=== PATIENT | female | born 1980 | race Caucasian/White ===

== ENCOUNTER 2021-02-06 20:54 | Emergency (ER) | payer MEDICAID, OTHER ==
[2021-02-06 21:03] VITALS: O2SAT 100
--- NOTE | 2021-02-06 21:14 | ERPHSYRPT ---
- History of Present Illness Time Seen by Provider: 02/06/21 21:14 Source: patient Exam Limitations: clinical condition Physician History: This is a 40-year-old white female who presents with altered mental status as well as abdominal pain. Patient states that she does use illicit drugs on occasion but denies any recent use. She also said that after eating [employer] she began having to abdominal pain. 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 Patient takes Effexor and Seroquel chronically. Timing/Duration: today Severity: moderate Associated Symptoms: abdominal pain, other (Altered mental status) Allergies/Adverse Reactions: codeine Adverse Reaction (Severe, Verified 02/06/21 21:17) Stomach Pain hydrocodone Adverse Reaction (Severe, Verified 02/06/21 21:17) Stomach Pain Home Medications: Quetiapine Fumarate [Seroquel] 50 mg PO BID 02/06/21 [History] Venlafaxine HCl [Effexor Xr] 150 mg PO DAILY 02/06/21 [History] Travel Risk - International Travel Have you traveled outside of the country in past 3 weeks: No - Coronavirus Screening Are you exhibiting any of the following symptoms?: No Close contact with a COVID-19 positive Pt in past 14-21 Days: No - Review of Systems Constitutional: Lethargy Eyes: No Symptoms Ears, Nose, & Throat: No Symptoms Respiratory: No Symptoms Cardiac: No Symptoms Abdominal/Gastrointestinal: Abdominal Pain, No Nausea, No Vomiting, No Diarrhea Genitourinary Symptoms: No Symptoms Musculoskeletal: No Symptoms Skin: No Symptoms Neurological: No Symptoms Psychological: No Symptoms Endocrine: No Symptoms Hematologic/Lymphatic: No Symptoms Immunological/Allergic: No Symptoms All Other Systems: Reviewed and Negative - Past Medical History Pertinent Past Medical History: Yes - Past Surgical History Past Surgical History: Yes - Nursing Vital Signs Nursing Vital Signs: Initial Vital Signs Temperature 98.0 F 02/06/21 21:00 Pulse Rate 83 02/06/21 21:00 Respiratory Rate 18 02/06/21 21:00 Blood Pressure 141/96 02/06/21 21:00 O2 Sat by Pulse Oximetry 100 02/06/21 21:00 Pain Scale Pain Intensity 7 - Physical Exam General Appearance: lethargy (But arousable) Eye Exam: PERRL/EOMI, eyes nml inspection Ears, Nose, Throat Exam: normal ENT inspection, moist mucous membranes Neck Exam: normal inspection, non-tender, supple, full range of motion Respiratory Exam: normal breath sounds, lungs clear, airway intact, No chest tenderness, No respiratory distress Cardiovascular Exam: regular rate/rhythm, normal heart sounds, normal peripheral pulses Gastrointestinal/Abdomen Exam: soft, normal bowel sounds, tenderness (Mild diffuse) Pelvic Exam: not done Rectal Exam: not done Back Exam: normal inspection, normal range of motion, vertebral tenderness, No CVA tenderness Extremity Exam: normal inspection, normal range of motion, pelvis stable Neurologic Exam: oriented x 3, cooperative, cashier host/hostess II-XII nml as tested, intoxicated appearance Skin Exam: normal color, warm, dry Lymphatic Exam: No adenopathy SpO2 Interpretation: normal SpO2: 100 O2 Delivery: Room Air - Course Nursing assessment & vital signs reviewed: Yes EKG Interpreted by Me: RATE ([id number]), Sinus Rhythm, NORMAL AXIS, NORMAL INTERVALS, NORMAL QRS, NORMAL ST-T, Other (No acute ischemic changes on today's EKG.) Ordered Tests: Active Orders 24 hr Category Date Time Status EKG-ER Only STAT Care 02/06/21 21:23 Active IV Insertion STAT Care 02/06/21 21:22 Active ABDOMEN AND PELVIS W/0 CONTRAS [CT] Stat Exams 02/06/21 21:56 Taken HEAD WITHOUT CONTRAST [CT] Stat Exams 02/06/21 21:52 Taken AMYLASE Stat Lab 02/06/21 21:30 Completed CBC W DIFF Stat Lab 02/06/21 21:30 Completed CMP Stat Lab 02/06/21 21:30 Completed Lactic Acid Stat Lab 02/06/21 21:30 Completed POCT GLUCOSE Stat Lab 02/06/21 21:02 Completed TROPONIN Q3H Lab 02/06/21 21:30 Completed TROPONIN Q3H Lab 02/07/21 00:30 Ordered TROPONIN Q3H Lab 02/07/21 03:30 Ordered TROPONIN Q3H Lab 02/07/21 06:30 Ordered TROPONIN Q3H Lab 02/07/21 09:30 Ordered UA W/RFX UR CULTURE Stat Lab 02/06/21 21:22 Ordered Urine Triage Profile Stat Lab 02/06/21 21:22 Ordered Medication Summary Discontinued Medications Generic Name Dose Route Start Last Admin Trade Name Freq PRN Reason Stop Dose Admin Sodium Chloride 1,000 mls @ 999 mls/hr 02/06/21 21:22 02/06/21 21:50 Sodium Chloride 0.9% 1000 Ml IV 02/06/21 22:22 999 mls/hr .Q1H1M STA Administration Sodium Chloride Confirm 02/06/21 21:48 Sodium Chloride 0.9% 1000 Ml Administered 02/06/21 21:49 Dose 1,000 mls @ ud .ROUTE .STK-MED ONE Lab/Rad Data: Laboratory Result Diagrams 02/06/21 21:30 02/06/21 21:30 Laboratory Results 02/06/21 02/06/21 02/06/21 Range/Units 21:30 21:30 21:30 WBC (4.0-10.5) K/mm3 RBC (4.1-5.4) M/mm3 Hgb (12.0-16.0) gm/dl Hct (35-47) % MCV (78-100) fl MCH (26-32) pg MCHC (32-36) g/dl RDW (11.5-14.0) % Plt Count (150-450) K/mm3 MPV (7.5-11.0) fl Gran % (36.0-66.0) % Eos # (Auto) (0-0.5) Absolute Lymphs (auto) (1.0-4.6) Absolute Monos (auto) (0.0-1.3) Lymphocytes % (24.0-44.0) % Monocytes % (0.0-12.0) % Eosinophils % (0.00-5.0) % Basophils % (0.0-0.4) % Absolute Granulocytes (1.4-6.9) Basophils # (0-0.4) Sodium 138 (137-145) mmol/L Potassium 3.9 (3.5-5.1) mmol/L Chloride 102 (98-107) mmol/L Carbon Dioxide 27 (22-30) mmol/L Anion Gap 11.9 (5-15) MEQ/L BUN 12 (7-17) mg/dL Creatinine 0.80 (0.52-1.04) mg/dL Estimated GFR > 60.0 ML/MIN Glucose 81 (74-106) mg/dL POC Glucometer (74 to 106) mg/dL Lactic Acid 1.2 (0.4-2.0) Calcium 8.9 (8.4-10.2) mg/dL Total Bilirubin 0.20 (0.2-1.3) mg/dL AST 25 (14-36) U/L ALT 13 (0-35) U/L Alkaline Phosphatase 53 (38-126) U/L Troponin I < 0.012 (0.000-0.034) ng/mL Serum Total Protein 6.8 (6.3-8.2) g/dL Albumin 4.1 (3.5-5.0) g/dL Amylase 50 (30-110) U/L 02/06/21 02/06/21 Range/Units 21:30 21:02 WBC 8.1 (4.0-10.5) K/mm3 RBC 4.17 (4.1-5.4) M/mm3 Hgb 8.8 L (12.0-16.0) gm/dl Hct 29.8 L (35-47) % MCV 71.5 L (78-100) fl MCH 21.1 L (26-32) pg MCHC 29.5 L (32-36) g/dl RDW 18.0 H (11.5-14.0) % Plt Count 392 (150-450) K/mm3 MPV 9.0 (7.5-11.0) fl Gran % 69.6 H (36.0-66.0) % Eos # (Auto) 0.06 (0-0.5) Absolute Lymphs (auto) 1.79 (1.0-4.6) Absolute Monos (auto) 0.60 (0.0-1.3) Lymphocytes % 22.1 L (24.0-44.0) % Monocytes % 7.4 (0.0-12.0) % Eosinophils % 0.7 (0.00-5.0) % Basophils % 0.2 (0.0-0.4) % Absolute Granulocytes 5.62 (1.4-6.9) Basophils # 0.02 (0-0.4) Sodium (137-145) mmol/L Potassium (3.5-5.1) mmol/L Chloride (98-107) mmol/L Carbon Dioxide (22-30) mmol/L Anion Gap (5-15) MEQ/L BUN (7-17) mg/dL Creatinine (0.52-1.04) mg/dL Estimated GFR ML/MIN Glucose (74-106) mg/dL POC Glucometer 102 (74 to 106) mg/dL Lactic Acid (0.4-2.0) Calcium (8.4-10.2) mg/dL Total Bilirubin (0.2-1.3) mg/dL AST (14-36) U/L ALT (0-35) U/L Alkaline Phosphatase (38-126) U/L Troponin I (0.000-0.034) ng/mL Serum Total Protein (6.3-8.2) g/dL Albumin (3.5-5.0) g/dL Amylase (30-110) U/L - Progress Progress: improved Progress Note: 02/06/21 22:37 CAT scan of the head without contrast shows a normal CAT scan with no acute intracranial abnormalities. CAT scan of the abdomen pelvis without contrast shows no acute intra-abdominal or intrapelvic process. 02/06/21 22:53 Medical decision making: This patient's work-up is thus far negative. However patient is refusing to provide us with a urine sample for urinalysis and urine triage/drug screen. She will not allow us to perform a straight cath to obtain the urine specimen. Patient wants to leave. Patient realizes the work-up is not complete. She realizes that she is leaving at her own risk in those risks include worsening condition, . The benefit of staying and completing the work-up is that we may be able to diagnose and determine an appropriate treatment plan for her. Patient signed the AMA form. Counseled pt/family regarding: lab results, diagnosis, need for follow-up, rad results - Departure Departure Disposition: AMA Clinical Impression: Abdominal pain Condition: Stable Critical Care Time: No Referrals: RICHELLE MILLER DO [NON-STAFF PHY W/O PRIVILEGES] - Additional Instructions: Drink plenty of clear liquid fluids. Follow-up with your primary care physician for further management of your symptoms. Avoid illicit drugs.
[2021-02-06] MEDS ORDERED: Sodium Chloride 0.9% 1000 ML 1,000 ML IV STA (21:22)
[2021-02-06 21:38] LABS: Absolute Neutrophil Ct (ANC) 5.62 (1.4-6.9); BASOPHIL % 0.2 % (0.0-0.4); Basophil (Absolute #) 0.02 (0-0.4); Eosinophil % 0.7 % (0.00-5.0); Eosinophil (Absolute #) 0.06 (0-0.5); Hematocrit 29.8 % (35-47); Hemoglobin 8.8 gm/dl (12.0-16.0); Lymphocyte (Absolute #) 1.79 (1.0-4.6); Lymphocytes % 22.1 % (24.0-44.0); Mean Cell Volume 71.5 fl (78-100); Mean Corpuscular Hemoglobin 21.1 pg (26-32); Mean Corpuscular Hgb Concent. 29.5 g/dl (32-36); Monocytes % 7.4 % (0.0-12.0); Neutrophil % 69.6 % (36.0-66.0); Platelet Count 392 K/mm3 (150-450); Red Blood Count 4.17 M/mm3 (4.1-5.4); White Blood Count 8.1 K/mm3 (4.0-10.5)
[2021-02-06] MEDS ORDERED: Sodium Chloride 0.9% 1000 ML 1,000 ML ONE (21:48)
[2021-02-06 21:55] LABS: ALBUMIN 4.1 g/dL (3.5-5.0); ALKALINE PHOSPHATASE 53 U/L (38-126); AMYLASE 50 U/L (30-110); ANION GAP 11.9 MEQ/L (5-15); BLOOD UREA NITROGEN 12 mg/dL (7-17); CHLORIDE 102 mmol/L (98-107); Calcium 8.9 mg/dL (8.4-10.2); Carbon Dioxide 27 mmol/L (22-30); EST GLOMERULAR FILTRATION RATE > 60.0 ML/MIN; Glucose 81 mg/dL (74-106); Potassium 3.9 mmol/L (3.5-5.1); SGOT/AST 25 U/L (14-36); SGPT/ALT 13 U/L (0-35); SODIUM 138 mmol/L (137-145); Total Protein 6.8 g/dL (6.3-8.2)
[2021-02-06 22:07] VITALS: BP 146/89; PULSE 82
[2021-02-06 23:18] LABS: Slide Review 1 YES
--- NOTE | 2021-02-07 09:03 | XRAY ---
Indication: Altered mental status. Multiple contiguous axial images obtained through the head without contrast. Comparison: None Ventriculosulcal pattern appears symmetric. Tiny remote lacunar infarct anterior limb right internal capsule. No acute intracranial hemorrhage, abnormal extra-axial fluid collection, or mass effect. Fourth ventricle is midline without hydrocephalus. Peoples-white matter differentiation preserved. Bony calvarium intact. Visualized paranasal sinuses and mastoid air cells are clear. Impression: Tiny remote lacunar infarct right internal capsule. Remaining CT head without contrast exam is negative.
--- NOTE | 2021-02-07 09:05 | XRAY ---
Indication: Left upper quadrant pain. Multiple contiguous axial images obtained through the abdomen and pelvis without contrast. Comparison: October 18, 2006. Lung bases demonstrates moderate bilateral dependent atelectasis. No infiltrate or effusion. Heart not enlarged. Stomach moderately distended with food. Noncontrasted stomach and bowel loops nonobstructed. Normal appendix minimal proximal sigmoid diverticulosis. Again cholecystectomy. No free fluid/air. Remaining liver, pancreas, spleen, adrenal glands, kidneys, ureters, bladder, uterus, and aorta unremarkable for noncontrast exam. Osseous structures intact with new L4-S1 degenerative vacuum disc phenomena. No ventral or inguinal hernias. Impression: 1. Sigmoid diverticulosis and L4-S1 degenerative disc disease. 2. Remaining CT abdomen/pelvis without contrast exam is negative.
== END 2021-02-06 22:59 | disposition home or self-care (01) ==
LOC: ED 20:54
DX: R10.9 Unspecified abdominal pain (principal); R41.82 Altered mental status, unspecified; Z79.899 Other long term (current) drug therapy
CPT/HCPCS: 36000; 36415; 70450; 74176; 80053; 82150; 82947; 83605; 84484; 85025; 93005; 96360; 99284